=== PATIENT | female | born 1955 | race Caucasian/White ===

== ENCOUNTER → 2016-11-04 | Outpatient (CLI) | payer OTHER, MEDICAID | LOC: BMCIMAGING 14:58 | DX: Z12.31 Encounter for screening mammogram for malignant neoplasm of breast (principal) | CPT/HCPCS: G0202 ==

== ENCOUNTER → 2017-11-06 | Outpatient (CLI) | payer OTHER, MEDICAID | LOC: FIMAGING 13:32 | PROVIDERS: ATTEND Specialist | DX: R06.00 Dyspnea, unspecified (principal) ==

== ENCOUNTER 2018-01-02 10:03 | Emergency (ER) | payer OTHER, MEDICAID ==
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
[2018-01-02] MEDS ORDERED: ACETAMINOPHEN 500 MG TAB PO ONE (12:27)
[2018-01-02 12:45] VITALS: BP 125/80
== END 2018-01-02 12:56 | disposition home or self-care (01) ==
LOC: EDUNIT#
DX: S16.1XXA Strain of muscle, fascia and tendon at neck level, initial encounter (principal); S39.92XA Unspecified injury of lower back, initial encounter; Z91.040 Latex allergy status; V49.50XA Passenger injured in collision with unspecified motor vehicles in traffic accident, initial encounter; Y92.410 Unspecified street and highway as the place of occurrence of the external cause; Y99.8 Other external cause status; Y93.89 Activity, other specified

== ENCOUNTER → 2018-04-05 | Outpatient (CLI) | payer OTHER, MEDICAID | LOC: BMCIMAGING 15:19 | DX: Z12.31 Encounter for screening mammogram for malignant neoplasm of breast (principal) ==

== ENCOUNTER 2019-01-28 20:24 | Emergency (ER) | payer OTHER, MEDICAID ==
[2019-01-28] MEDS ORDERED: ONDANSETRON 4 MG/2 ML VIAL IVP ONE (20:44)
[2019-01-28] MEDS ORDERED: NS 1,000 ML IV ONE ×2 (20:44→21:52)
[2019-01-28 20:53] LABS: PLATELET COUNT 441 10^3/uL (150-400)
--- NOTE | 2019-01-28 21:52 | EDPHY ---
HPI/HX/ROS/PE/MDM Narrative: CHIEF COMPLAINT: Vomiting, diarrhea, nausea HISTORY OF PRESENT ILLNESS: The patient is a 63 y/o female with a history of rheumatoid arthritis, Sjogren's, and asthma complaining of diarrhea, vomiting, nausea, and abdominal pain, onset this afternoon. This afternoon, after eating her lunch, the patient became nauseated, developed abdominal pain, and had diarrhea and vomiting. At first, she believed there may be blood in her vomit due to a red color but she had eaten watermelon and feels that is the cause of the red color. She reports associated chills after vomiting but denies fever. She reports feeling weak. No recent travel, no ill contacts. Patient is not currently taking any immunosuppressant. No chest pain, shortness of breath, palpitations, urinary complaints, headache, lightheadedness. REVIEW OF SYSTEMS: A comprehensive 10 system review of systems is otherwise negative aside from elements mentioned in the history of present illness and medical decision making PAST MEDICAL HISTORY: Rheumatoid arthritis, Sjogren's, asthma SOCIAL HISTORY: Lives in [place], disabled, medicaid patient VITAL SIGNS: Reviewed by me GENERAL: Pleasant, alert, reporting nausea and generalized abdominal discomfort. HEENT: Atraumatic. Eyes: No icterus, no injection. Mouth: moist mucous membranes. No erythema or lesions. Neck: supple with no adenopathy. LUNGS: Clear to auscultation bilaterally, no wheezes, rhonchi or rales. CARDIAC: Regular rate and rhythm, no rubs, murmurs or gallops. ABDOMEN: Soft, no focal tenderness, nondistended. BACK: No CVA tenderness. EXTREMITIES: No trauma. No edema. Arthritic changes from rheumatoid arthritis in the hand. NEURO: Alert and oriented, grossly nonfocal. SKIN: Warm and dry, no rash. PSYCHIATRIC: Normal mentation, no agitation. ED Course: The patient presents with vomiting, diarrhea, abdominal pain, and nausea. She feels she may have food poisoning from her lunch. Her exam is benign. She received 2 L NS fluids. CBC, basic metabolic panel, liver enzymes, and lipase are not concerning. She reports feeling better with fluids and Zofran. Plan for PO challenge and discharge. She agrees to this course of action. Patient tolerated p.o. Fluids well. She was discharged with prepack of Zofran to use as needed for any recurrent nausea. She received instructions regarding reasons to return to the emergency department and was improved on discharge. MDM: Differential diagnosis of the patient's nausea and vomiting was considered including but not limited to gastroenteritis, gastritis, alcohol intoxication, withdrawal symptoms, intraabdominal processes including appendicitis, pancreatitis, bowel obstruction and medication side effect. - Data Points Laboratory Results: Laboratory Results 01/28/19 20:39 01/28/19 20:39 01/28/19 01/28/19 20:39 20:39 WBC 12.61 10^3/uL H 10^3/uL (3.80-9.50) RBC 4.53 10^6/uL 10^6/uL (4.18-5.33) Hgb 14.2 g/dL g/dL (12.6-16.3) Hct 43.6 % % (38.0-47.0) MCV 96.2 fL fL (81.5-99.8) MCH 31.3 pg pg (27.9-34.1) MCHC 32.6 g/dL g/dL (32.4-36.7) RDW 13.0 % % (11.5-15.2) Plt Count 441 10^3/uL H 10^3/uL (150-400) MPV 8.7 fL fL (8.7-11.7) Neut % (Auto) 94.2 % H % (39.3-74.2) Lymph % (Auto) 3.1 % L % (15.0-45.0) Webb % (Auto) 2.0 % L % (4.5-13.0) Eos % (Auto) 0.2 % L % (0.6-7.6) Baso % (Auto) 0.2 % L % (0.3-1.7) Nucleat RBC Rel Count 0.0 % % (0.0-0.2) Absolute Neuts (auto) 11.88 10^3/uL H 10^3/uL (1.70-6.50) Absolute Lymphs (auto) 0.39 10^3/uL L 10^3/uL (1.00-3.00) Absolute Monos (auto) 0.25 10^3/uL L 10^3/uL (0.30-0.80) Absolute Eos (auto) 0.03 10^3/uL 10^3/uL (0.03-0.40) Absolute Basos (auto) 0.03 10^3/uL 10^3/uL (0.02-0.10) Absolute Nucleated RBC 0.00 10^3/uL 10^3/uL (0-0.01) Immature Gran % 0.3 % % (0.0-1.1) Immature Gran # 0.04 10^3/uL 10^3/uL (0.00-0.10) RBC/WBC/PLT Morphology TNP Platelet Estimate TNP Sodium 136 mEq/L mEq/L (135-145) Potassium 4.4 mEq/L mEq/L (3.5-5.2) Chloride 104 mEq/L mEq/L (97-110) Carbon Dioxide 22 mEq/l mEq/l (22-31) Anion Gap 10 mEq/L mEq/L (6-14) BUN 8 mg/dL mg/dL (7-23) Creatinine 0.3 mg/dL L mg/dL (0.6-1.0) Estimated GFR > 60 Glucose 135 mg/dL H mg/dL (70-100) Calcium 9.8 mg/dL mg/dL (8.5-10.4) Total Bilirubin 0.5 mg/dL mg/dL (0.1-1.4) Conjugated Bilirubin 0.0 mg/dL mg/dL (0.0-0.5) Unconjugated Bilirubin 0.5 mg/dL mg/dL (0.0-1.1) AST 22 IU/L IU/L (14-46) ALT 29 IU/L IU/L (9-52) Alkaline Phosphatase 90 IU/L IU/L (38-126) Total Protein 7.7 g/dL g/dL (6.3-8.2) Albumin 4.2 g/dL g/dL (3.5-5.0) Lipase 46 IU/L IU/L (23-300) Medications Given: Discontinued Medications Sodium Chloride (Ns) 1,000 mls @ 0 mls/hr IV EDNOW ONE; Wide Open PRN Reason: Protocol Stop: 01/28/19 20:45 Last Admin: 01/28/19 20:47 Dose: 1,000 mls Sodium Chloride (Ns) 1,000 mls @ 0 mls/hr IV ONCE ONE; Wide Open PRN Reason: Protocol Stop: 01/28/19 21:53 Last Admin: 01/28/19 21:56 Dose: 1,000 mls Ondansetron HCl (Zofran) 4 mg IVP EDNOW ONE Stop: 01/28/19 20:45 Last Admin: 01/28/19 20:49 Dose: 4 mg Ondansetron HCl (Zofran Odt 4 Mg Prepack#2) 1 btl TAKEHOME EDNOW ONE Stop: 01/28/19 22:02 Last Admin: 01/28/19 22:09 Dose: 1 btl General Time Seen by Provider: 01/28/19 21:27 Initial Vital Signs: Initial Vital Signs Temperature (C) 37.2 C 01/28/19 20:25 Heart Rate 109 H 01/28/19 20:25 Respiratory Rate 18 01/28/19 20:25 Blood Pressure 103/83 H 01/28/19 20:25 O2 Sat (%) 95 01/28/19 20:25 O2 Delivery Mode Room Air Allergies/Adverse Reactions: [place] And Derivatives Allergy (Severe, Verified 01/28/19 20:31) SHARP PAIN "EVERYWHERE" codeine [Codeine] Allergy (Severe, Verified 01/28/19 20:31) NAUSEA, DIZZYINESS ephedrine HCl [From Tedral] Allergy (Severe, Verified 01/28/19 20:31) DIZZY ibuprofen [From Advil] Allergy (Severe, Verified 01/28/19 20:31) GI CRAMPING SEVERE morphine [Morphine] Allergy (Severe, Verified 01/28/19 20:31) INCREASED PAIN LEVEL phenobarbital [From Tedral] Allergy (Severe, Verified 01/28/19 20:31) DIZZY prednisone [Prednisone] Allergy (Severe, Verified 01/28/19 20:31) ASTHMA SYMPTOMS IN HIGH DOSES theophylline [From Tedral] Allergy (Severe, Verified 01/28/19 20:31) DIZZY erythromycin base [Erythromycin Base] Allergy (Intermediate, Verified 01/28/19 20:31) Hives hydrocodone bitartrate [From Vicodin] Allergy (Intermediate, Verified 01/28/19 20:31) INCREASED PAIN lactose [Lactose] Allergy (Intermediate, Verified 01/28/19 20:31) UPSET STOMACH latex [Latex] Allergy (Intermediate, Verified 01/28/19 20:31) SKIN IRRITATION omega-3 fatty acids [From [place] Oil-1000] Allergy (Intermediate, Verified 01/28 20:31) STOMACH ACHE oxycodone HCl [From Percocet] Allergy (Intermediate, Verified 01/28/19 20:31) INCREASED PAIN [place] Oil [From [place] Oil-1000] Allergy (Intermediate, Verified 01/28/19 20:31 ) STOMACH ACHE Sulfa (Sulfonamide Antibiotics) Allergy (Intermediate, Verified 01/28/19 20:31) Hives sulfamethoxazole [From Bactrim] Allergy (Intermediate, Verified 01/28/19 20:31) Hives trimethoprim [From Bactrim] Allergy (Intermediate, Verified 01/28/19 20:31) Rash aspirin [Aspirin] Allergy (Verified 01/28/19 20:31) Other-Enter Comments bacitracin [From Neosporin ([id number])] Allergy (Verified 01/28/19 20:31) bacitracin zinc [From Neosporin ([id number])] Allergy (Verified 01/28/19 20: 31) gabapentin [Gabapentin] Allergy (Verified 01/28/19 20:31) Other-Enter Comments neomycin sulfate [From Neosporin ([id number])] Allergy (Verified 01/28/19 20: 31) polymyxin B [From Neosporin ([id number])] Allergy (Verified 01/28/19 20:31) DUST,POLLEN,MOLD, MILDEW, Allergy (Severe, Uncoded 01/25/11 20:52) ASTHMA SYMPTOMS, SINUS INFECTIONS LAVENDAR Allergy (Severe, Uncoded 01/25/11 20:52) SOB MUSCLE RELAXANTS Allergy (Severe, Uncoded 01/25/11 20:52) PANIC ATTACKS NITROUS OXIDE Allergy (Severe, Uncoded 01/25/11 20:52) PANIC ATTACKS PERFUMES,ESSENTIAL OILS Allergy (Severe, Uncoded 01/25/11 20:52) SOB METAL Allergy (Intermediate, Uncoded 01/25/11 20:52) ACHY, ITCHY BAND-AID GLUE Allergy (Uncoded 04/25/14 09:54) Home Medications: Medication Instructions Recorded CELECOXIB [Celebrex] 0 mg PO 01/25/11 Cephalexin [Keflex] 0 mg PO QID 05/21/11 HYDROmorphone HCL [Dilaudid] 0 mg PO 01/25/11 Hydroxychloroquine Sulfate 0 mg PO 01/25/11 [Plaquenil] traMADol [Ultram 50 mg (*)] 50 mg PO Q4 #9 tab 04/25/14 Ondansetron Odt [Zofran Odt 4 mg 4 mg PO Q4 PRN #6 tab 10/25/14 (*)] Departure - Departure Disposition: Home, Routine, Self-Care Clinical Impression: Gastroenteritis, Vomiting and diarrhea Condition: Good Instructions: Gastroenteritis (ED), Acute Nausea and Vomiting (ED), Food Poisoning (ED) Additional Instructions: For your vomiting diarrhea, I suggested you start with a bland diet and advance as tolerated. This means start with clear liquids such as water, Gatorade, juice, flat non- caffeinated soda. If you tolerate clear liquids, then you may add bland foods such as bananas, rice, or toast. If you do not have any worsening of your symptoms, you may begin to resume a regular diet. You may take Zofran as needed for recurrent nausea and vomiting You may use Tylenol for abdominal pain. Referrals: MIGUEL A CERRATO [Other] - As per Instructions Report Scribed for: Sharita Charles Report Scribed by: Freda Tamayo Date of Report: 01/28/19 Time of Report: 22:27 Physician Review and Approval Statement: Portions of this note were transcribed by a medical transcription radiology. I personally performed a history, physical exam, medical decision making, and confirmed accuracy of information the transcribed note.
[2019-01-28] MEDS ORDERED: ONDANSETRON 4MG PREPACK#2 BTL TAKEHOME ONE (22:01)
[2019-01-28 22:07] VITALS: BP 121/76
== END 2019-01-28 23:07 | disposition home or self-care (01) ==
DX: K52.9 Noninfective gastroenteritis and colitis, unspecified (principal); E86.9 Volume depletion, unspecified
CPT/HCPCS: 96361; 96374; 99284; J2405